=== PATIENT | female | born 1960 | race Caucasian/White ===

== ENCOUNTER 2017-12-26 13:47 | Outpatient (CLI) | payer SELFPAY ==
--- NOTE | 2018-01-13 08:50 | MMO ---
RIGHT BREAST SCREENING MAMMOGRAM: Date: 12/26/17 HISTORY: Left breast cancer with mastectomy in 1998. COMPARISON: 04/11/16. TECHNIQUE: CC and MLO view of the right breast are submitted for interpretation. This patient's mammogram was interpreted with the assistance of computer-aided detection. FINDINGS: Right breast is composed of scattered fibroglandular tissue. No suspicious dominant mass, architectur al distortion, or suspicious calcifications. IMPRESSION: BIRADS 1: Negative RECOMMENDATION: Annual mammogram. POS: [facility]
== END 2017-12-26 13:48 | disposition home or self-care (01) ==
LOC: SCSMAMMO 13:47
PROVIDERS: ATTEND Student in an Organized Health Care Education/Training Program
DX: Z12.31 Encounter for screening mammogram for malignant neoplasm of breast (principal)
CPT/HCPCS: 77067

== ENCOUNTER 2025-10-08 08:45 | Outpatient (CLI) | payer MEDICARE, OTHER | END 2025-10-08 08:46 | disposition home or self-care (01) | LOC: PET 08:45 | PROVIDERS: ATTEND Internal Medicine Hematology & Oncology | DX: C18.7 Malignant neoplasm of sigmoid colon (principal); K63.89 Other specified diseases of intestine | CPT/HCPCS: 78815; A9552 ==